=== PATIENT | female | born 1990 ===

== ENCOUNTER 2016-08-01 11:18 | Emergency (ER) | payer SELFPAY ==
[2016-08-01 13:38] VITALS: BP 109/53
[2016-08-01] MEDS ORDERED: Ibuprofen TAB* 600 MG PO ONE (13:49)
--- NOTE | 2016-08-01 14:32 | RAD ---
INDICATION: Right rib pain COMPARISON: None TECHNIQUE: Multiple views of the ribs were obtained. FINDINGS: Bones: There is a nonspecific fracture the anterior right 10th rib There is no other evidence of acute rib fracture. LUNGS: The lungs are clear. There is no pneumothorax. Pleural spaces: There is no evidence of hemothorax. Other: None IMPRESSION: NONDISPLACED FRACTURE ANTERIOR RIGHT 10TH RIB
--- NOTE | 2016-08-03 14:37 | UC ---
Cardiac HPI - HPI Summary HPI Summary: Right sided rib pain began August 01. Has been coughing a lot and doing a lot of manual work --she wonders if this is the cause - History of Current Complaint Chief Complaint: UCGeneralIllness Stated Complaint: RIB INJURY Time Seen by Provider: 08/01/16 13:43 Hx Obtained From: Patient Onset/Duration: Sudden Onset, Lasting Days - 1, Still Present Timing: Constant Initial Severity: Moderate Current Severity: Moderate Chest Pain Location: Discrete at: - right anterior rib Character: Dull/Aching Aggravating: Position Alleviating: Rest Associated Signs & Symptoms: Positive: Negative - Allergy/Home Medications Allergies/Adverse Reactions: Allergies Allergy/AdvReac Type Severity Reaction Status Date / Time Erythromycin Allergy Intermediate Swelling Verified 08/01/16 13:30 PMH/Surg Hx/FS Hx/Imm Hx Previously Healthy: No Endocrine History Of: Denies: Diabetes, Thyroid Disease Cardiovascular History Of: Denies: Cardiac Disorders, Hypertension Respiratory History Of: Reports: Asthma Denies: COPD GI/ History Of: Denies: Ulcer - Surgical History Surgical History: None - Family History Known Family History: Positive: None - Social History Occupation: Employed Full-time, Employed Part-time Lives: With Family Alcohol Use: Occasionally Substance Use Type: None Substance Use Comment - Amount & Last Used: At night a few times a week Smoking Status (MU): Heavy Every Day Tobacco Smoker Type: Cigarettes Amount Used/How Often: 1 PPD Length of Time of Smoking/Using Tobacco: on and off for 3 years Have You Smoked in the Last Year: Yes Household Exposure Type: Cigarettes Cessation Counseling: Counseled 3+Min - 10 Min - Immunization History Most Recent Tetanus Shot: thinks within 3 years Review of Systems Constitutional: Negative Skin: Negative Eyes: Negative ENT: Negative Respiratory: Negative Cardiovascular: Negative Gastrointestinal: Negative Genitourinary: Negative Motor: Negative Neurovascular: Negative Musculoskeletal: Arthralgia - right anterior lower ribs Neurological: Negative Psychological: Negative All Other Systems Reviewed And Are Negative: Yes Physical Exam Triage Information Reviewed: Yes Appearance: Well-Appearing, No Pain Distress, Thin Vital Signs: Initial Vital Signs Temp 98.4 F 08/01/16 13:31 Pulse 83 08/01/16 13:31 Resp 18 08/01/16 13:31 BP 109/53 08/01/16 13:31 Pulse Ox 100 08/01/16 13:31 Vital Signs Reviewed: Yes Eye Exam: Normal Eyes: Positive: Conjunctiva Clear ENT Exam: Normal ENT: Positive: Normal ENT inspection, Hearing grossly normal. Negative: Nasal congestion, Nasal drainage, Trismus, Muffled/hoarse voice Dental Exam: Normal Neck exam: Normal Neck: Positive: Supple, Nontender Respiratory Exam: Normal Respiratory: Positive: Lungs clear, Normal breath sounds, No respiratory distress, No accessory muscle use, Other: - right lower anterior chest wall discomfort Cardiovascular Exam: Normal Cardiovascular: Positive: RRR, No Murmur, Pulses Normal, Brisk Capillary Refill Abdominal Exam: Normal Abdomen Description: Positive: Nontender, No Organomegaly, Soft Bowel Sounds: Positive: Present Musculoskeletal Exam: Normal Musculoskeletal: Positive: Strength Intact, ROM Intact, No Edema Neurological Exam: Normal Neurological: Positive: Alert Psychological: Positive: Normal Response To Family Skin Exam: Normal Diagnostics - Laboratory ABG Interpretation: rib anteror 10th rib nondisplaced fracture - Assessment/Plan Course Of Treatment: rest, nicotine cesastion information ice packs, pain med follow with pcp - Differential Diagnoses - Chest Pain Differential Diagnosis/HQI/PQRI: Chest Wall, Lower Respiratory Infection, Other : - rib fracture - Clinical Impression Provider Diagnoses: Right anterior 10th rib non-displaced fracture Discharge - Discharge Plan Condition: Stable Disposition: HOME Prescriptions: HYDROcodone/ACETAMIN 5-325 MG* [[place] 5-325 TAB*] 1 tab PO Q6H PRN #15 tab MDD 4 PRN Reason: pain Ibuprofen TAB* [Motrin TAB* 600 MG] 600 mg PO Q6H PRN #40 tab PRN Reason: pain Patient Education Materials: Rib Fracture (ED) Forms: *Work Release Referrals: Sloan Celaya MD [Primary Care Provider] - 1 Week
== END 2016-08-01 15:00 | disposition home or self-care (01) ==
LOC: UCEAST 11:18
DX: S22.31XA Fracture of one rib, right side, initial encounter for closed fracture (principal); X58.XXXA Exposure to other specified factors, initial encounter; Y93.9 Activity, unspecified; Y92.9 Unspecified place or not applicable; Z88.1 Allergy status to other antibiotic agents; F17.210 Nicotine dependence, cigarettes, uncomplicated
CPT/HCPCS: 99212; A9270-GY; G0463

== ENCOUNTER 2019-09-08 12:58 | Emergency (ER) | payer BC ==
[2019-09-08 13:09] VITALS: BP 122/63
--- NOTE | 2019-09-08 13:14 | UC ---
Dental HPI - HPI Summary HPI Summary: 28 yo female presents with dental pain. She tells me that she gets dental abscesses from time to time over the course of the year. Most recently over the last 2-3 days has had increased pain and swelling to a right upper tooth. She called her dentist today and they scheduled her an appt for 09/14. She has been taking tylenol/ibuprofen for the pain with little relief. She is eating, drinking, and tolerating po well. Denies fever, chills, sinus symptoms, sore throat. - History of Current Complaint Chief Complaint: UCDentalProblem Stated Complaint: DENTAL COMPLAINT Time Seen by Provider: 09/08/19 13:14 Hx Obtained From: Patient Hx Last Menstrual Period: 08/31/19 Onset/Duration: Gradual Onset Severity: Mild Pain Intensity: 4 Pain Scale Used: 0-10 Numeric - Allergies/Home Medications Allergies/Adverse Reactions: Allergies Allergy/AdvReac Type Severity Reaction Status Date / Time erythromycin base Allergy Intermediate Swelling Verified 09/08/19 13:09 PMH/Surg Hx/FS Hx/Imm Hx - Additional Past Medical History Additional PMH: None - Surgical History Surgical History: None - Family History Known Family History: Positive: None - Social History Occupation: Employed Full-time Lives: With Family Alcohol Use: Daily Substance Use Type: Marijuana Substance Use Comment - Amount & Last Used: At night a few times a week Smoking Status (MU): Heavy Every Day Tobacco Smoker Type: Cigarettes Amount Used/How Often: 1 PPD Length of Time of Smoking/Using Tobacco: on and off for 3 years Have You Smoked in the Last Year: Yes Household Exposure Type: Cigarettes - Immunization History Most Recent Tetanus Shot: thinks within 3 years Review of Systems All Other Systems Reviewed And Are Negative: No Constitutional: Positive: Negative Skin: Positive: Negative Eyes: Positive: Negative ENT: Positive: Dental Pain Respiratory: Positive: Negative Cardiovascular: Positive: Negative Gastrointestinal: Positive: Negative Neurological/Mental Status: Positive: Negative Psychological: Positive: Negative Physical Exam - Summary Physical Exam Summary: GENERAL: NAD. WDWN. No pain distress. SKIN: No rashes, sores, lesions, or open wounds. HEENT: Head: AT/NC Eyes: EOM intact. Conjunctiva clear without inflammation or discharge. Ears: Hearing grossly normal. TMs intact, no bulging, erythema, or edema. Nose: Nasal mucosa pink and moist. NTTP maxillary and frontal sinus. Throat: Posterior oropharynx without exudates, erythema, or tonsillar enlargement. Uvula midline. NECK: Supple. Nontender. No lymphadenopathy. CHEST: CTAB. No r/r/w. No accessory muscle use. Breathing comfortably and in no distress. CV: RRR. Pulses intact. Cap refill <2seconds NEURO: Alert. PSYCH: Age appropriate behavior. Triage Information Reviewed: Yes Vital Signs: Initial Vital Signs Temp 98.8 F 09/08/19 13:04 Pulse 98 09/08/19 13:04 Resp 18 09/08/19 13:04 BP 122/63 09/08/19 13:04 Pulse Ox 100 09/08/19 13:04 Albuterol [Proair Hfa] 2 puff INH Q4H PRN 07/28/12 [History Confirmed 09/08/19] Flonase NASAL SPRAY 50MCG* 1 spray BOTH NARES DAILY WITH MEAL 05/02/14 [History Confirmed 09/08/19] Norplant 1 mg INTRADERM ONCE 05/02/14 [History Confirmed 09/08/19] Ibuprofen TAB* [Motrin TAB* 600 MG] 600 mg PO Q8H PRN #30 tab 02/15/16 [Rx Confirmed 09/08/19] Amoxicillin PO (*) [Amoxicillin 500 MG CAP*] 500 mg PO Q12H #14 cap 09/08/19 [Rx ] HYDROcodone/ACETAMIN 5-325 MG* [[place] 5-325 TAB*] 1 tab PO BID PRN #10 tab MDD 2 09/08/19 [Rx] Vital Signs Reviewed: Yes Dental: Positive: Percussion Tenderness @ - Tooth #2, Gross Decay/Caries @ - Tooth #2, Cellulitis @ - Tooth #2. Negative: Dental Fracture @, Abscess @, Cervical Lymphadenopathy, Bleeding Dental Complaint Course/Dx - Course Course Of Treatment: istop Reference #: [id number] Tooth #2 pain with cellulitis. - Differential Dx/Diagnosis Provider Diagnosis: Pain, dental Discharge ED - Sign-Out/Discharge Documenting (check all that apply): Patient Departure All imaging exams completed and their final reports reviewed: No Studies - Discharge Plan Condition: Stable Disposition: HOME Prescriptions: Amoxicillin PO (*) [Amoxicillin 500 MG CAP*] 500 mg PO Q12H #14 cap HYDROcodone/ACETAMIN 5-325 MG* [[place] 5-325 TAB*] 1 tab PO BID PRN #10 tab MDD 2 PRN Reason: Pain - Severe Patient Education Materials: Toothache (ED) Forms: *Work Release Referrals: Sloan Celaya MD [Primary Care Provider] - Additional Instructions: If you develop a fever, shortness of breath, chest pain, new or worsening symptoms - please call your PCP or go to the ED immediately. Keep your appointment with your dentist for saturday - Billing Disposition and Condition Condition: STABLE Disposition: Home
== END 2019-09-08 13:30 | disposition home or self-care (01) ==
LOC: UCEAST 12:58
DX: K12.2 Cellulitis and abscess of mouth (principal); K08.89 Other specified disorders of teeth and supporting structures; F17.210 Nicotine dependence, cigarettes, uncomplicated; Z88.1 Allergy status to other antibiotic agents; Z79.1 Long term (current) use of non-steroidal anti-inflammatories (NSAID)
CPT/HCPCS: 99202; G0463